=== PATIENT | male | born 1945 | race Caucasian/White ===

== ENCOUNTER 2016-06-30 15:19 | Emergency (ER) | payer MEDICARE, OTHER ==
[2016-06-30 15:35] VITALS: BMI 26.9
[2016-06-30] MEDS ORDERED: MECLIZINE 25 MG TAB PO ONE (16:05)
--- NOTE | 2016-06-30 16:05 | EDPRACDOC ---
- General Information Chief Complaint: Generalized Weakness Stated Complaint: ELEVATED BP PUGH TROUBLE SEEING Time Seen by Provider: 06/30/16 15:47 Information Source: Patient Mode Of Arrival: Car Home Medications: Home Medications Aspirin [Jose Aspirin] 325 mg PO DAILY 05/20/13 Tamsulosin HCl [Flomax] 2 tabs PO DAILY 07/12/13 Escitalopram Oxalate [Lexapro] 20 mg PO DAILY 01/31/15 Carbidopa/Levodopa [Carbidopa-Levo ER 25-100 Tab] 1 tab PO QID 02/20/15 Dicyclomine HCl [Bentyl] 10 mg PO Q6H PRN 09/24/15 Alprazolam [Xanax] 1 mg PO BID 06/30/16 Hydrocodone/Acetaminophen [Vicodin 5-300 mg Tablet] 1 tab PO BID PRN 06/30/16 Meclizine HCl [Antivert] 25 mg PO Q6H PRN #20 tablet 06/30/16 Omeprazole 40 mg PO DAILY 06/30/16 Allergies/Adverse Reactions: Allergies Allergy/AdvReac Type Severity Reaction Status Date / Time hydrochlorothiazide Allergy Intermediate See Verified 06/30/16 15:32 Comments "new depresion pill" Allergy See Uncoded 06/30/16 15:32 Comments "sleeping pill unknown" Allergy See Uncoded 06/30/16 15:32 Comments - History of Present Illness Onset: 2 weeks Exact Onset of Symptoms: Unknown HPI: PT SAID HE FELL 2 WEEKS AGO AND CAME HERE. HE SAID THAT HE HIT HIS HEAD. HE SAID HE HAD NO EVAL AND WAS ONLY GIVEN A SLEEPING PILL. PT'S LAST ER VISIT HERE WAS IN [facility] AND HE HAD A NL HEAD CT. PT SAID HE HAS HAD TROUBLE SEEING AND DIZZINESS SINCE THE FALL 2 WEEKS AGO. PT ALSO SAID THAT HIS DAUGHTER AND GRANDCHILDREN ARE LIVING WITH HIM AND CAUSING A LOT OF ANXIETY FOR HIS AND HIMSELF. Symptoms Started: Reports: Gradually Symptoms Description: Constant Weakness: Bilateral: Generalized Symptoms: Reports: Vertigo ED Past Medical History - Patient Medical History Neurological History: Reports: Cerebrovascular Accident (X 2), Parkinson's Cardiac History: Reports: Hypertension, Cardiac Catheterization Respiratory History: Reports: COPD (wears 2L NC at night), Chronic Bronchitis, Pneumonia GI/ History: Reports: Diverticulosis Musculoskeletal History: Reports: Arthritis (and chronic neck and back pain) Psychological History: Reports: Depression, Anxiety. Denies: Substance Use Disorder Systemic History: Denies: Cancer, Anemia Surgical History: Reports: Cholecystectomy, Cardiac Catheterization, Tonsillectomy/Adnoidectomy, Other (BILATERAL CATERACTS). Denies: Hernia Surgery - Family Medical History Reports: Hypertension (aunt), Diabetes (aunt), Cancer (mother-liver; father-lung ), Stroke (aunt). Denies: Cardiac Disorders - Social Medical History Smoking Status: Light tobacco smoker (less than 5/day) Social History: Denies: Substance Use Disorder ETOH: None Substance Abuse: None Lives In: Home EDM Review of Systems - Review of Systems ROS Negative Except as Marked: Yes All systems reviewed and were negative except as marked Neurological: Dizziness - Physical Exam Constitutional: Alert (Awake), No apparent distress Oriented to: Time, Person, Place Last recorded Vital Signs: Last Vital Signs Temp 98.4 F 06/30/16 15:32 Pulse 75 06/30/16 15:32 Resp 18 06/30/16 15:32 BP 129/74 06/30/16 15:32 Pulse Ox 97 06/30/16 15:32 Oxygen Pulse Oxygen Saturation 97 O2 Device Room Air Oxygen Flow Rate Fraction of Inspired Oxygen ( FIO2) - HEENT Head: Normal ( normocephalic) Eye Exam: Normal (PERRL, EOMI, Sclera white) Oropharynx: Normal (Pharynx:Moist without exudate,Gums-no swelling) ENT EAC: Normal TMJ: Normal Nose: No Symptoms Reported (septum midline) Neck: Normal (FROM, trachea at midline) - Respiratory/Cardiovascular Respiratory: Normal - CTA (BBS clear to auscultation without adventitious sounds ) Cardiovascular: Normal (RRR without murmur, gallop or rub) - GI Auscultation: Normal (NABS) Palpation: Normal (Soft,No rebound or guarding, non distended) Tenderness: Non tender Oreilly's Sign: Negative - Musculoskeletal Back: Normal (Non-Tender) Extremities: Normal (Normal tone, Pulses 2+ No cyanosis or edema, FROM) - Integumentary Skin: Normal, Warm, Dry Lymphatics: Normal (no adenopathy) - Neurologic Memory Impaired: Normal Motor Function: Normal (Normal tone, Pulses 2+ No cyanosis or edema, FROM) Cranial Nerve: Normal (CN II-X11 intact sensation, strength 5/5) Cerebellar: Tremor (CHRONIC) Mood Description: Normal Perception: Normal - Re-evaluation Re-evaluation 1 Re-evaluation Time: 17:39 (IMPROVED) - Results 06/30/16 16:10 06/30/16 16:10 - EKG EKG #1 EKG Time: 16:08 -: Yes EKG interpreted by me Rate: bpm: 63 [place]: Normal Rhythm: NSR Block: None Hypertrophy: None ST: Normal Comparison: 04/17/16 - Diagnostic Imaging Head Image interpreted by: Radiologist No acute abnormality. Atrophy and chronic microvascular ischemic change. Chest Image interpreted by: Radiologist No acute cardiopulmonary disease. Hyperinflation and bullous emphysema with bibasilar scarring. Decision Time to Discharge: 17:40 - Departure Yes I personally saw and evaluated the patient. Disposition: Home Condition: Fair Final Diagnosis: Vertigo Instructions: Vertigo (ED), Weakness (General) Education/Counseling Given To: Patient, Family Member Education/Counseling Given Regarding: Diagnosis, Treatment, Follow Up Referrals: Jigna Metcalf MD [Primary Care Provider] - One Week Prescriptions: Meclizine HCl [Antivert] 25 mg PO Q6H PRN #20 tablet PRN Reason: Dizziness Additional Instructions: F/U WITH DR. KITCHEN USE [facility] [place]
[2016-06-30 16:27] LABS: MPV 9.1 fL (7.4-10.4)
--- NOTE | 2016-06-30 16:34 | DIRPT ---
CLINICAL DATA: Dizziness, blurred vision and unsteady gait for 2 weeks. History of prior stroke. Initial encounter. EXAM: CT HEAD WITHOUT CONTRAST TECHNIQUE: Contiguous axial images were obtained from the base of the skull through the vertex without intravenous contrast. COMPARISON: Head CT scan 04/17/2016. FINDINGS: The brain is atrophic with chronic microvascular ischemic change. Punctate lacunar infarctions in the thalami are again seen. No evidence of acute intracranial abnormality including hemorrhage, infarct, mass lesion, mass effect, midline shift or abnormal extra-axial fluid collection is seen. No hydrocephalus or pneumocephalus. The calvarium is intact. IMPRESSION: No acute abnormality. Atrophy and chronic microvascular ischemic change. Electronically Signed By: Wilton Sams M.D. On: 06/30/2016 16:31
[2016-06-30 16:38] LABS: BLOOD UREA NITROGEN 7 MG/DL (9-20); CALC CORRECTED 8.4 MG/DL (8.4-10.2); CALCIUM 8.3 MG/DL (8.4-10.2); CALCULATED OSMOLALITY 267 MOs/Kg (270-290); CHLORIDE 103 mEq/L (98-107); GLUCOSE 115 MG/DL (70-99); PARTIAL THROMB. TIME 26.4 SEC (22-35); PT-INR 1.1; SODIUM LEVEL 139 mEq/L (137-146); TOTAL PROTEIN 7.2 G/DL (6.3-8.2)
--- NOTE | 2016-06-30 16:45 | DIRPT ---
CLINICAL DATA: Dizziness. Fall 2 weeks ago. EXAM: PORTABLE CHEST 1 VIEW COMPARISON: 04/17/2016 FINDINGS: Midline trachea. Normal heart size. No pleural effusion or pneumothorax. Hyperinflation with bullous type emphysema at the lung apices. Bibasilar scarring. No lobar consolidation. IMPRESSION: No acute cardiopulmonary disease. Hyperinflation and bullous emphysema with bibasilar scarring. Electronically Signed By: Dutch Naranjo M.D. On: 06/30/2016 16:42
[2016-06-30 17:27] LABS: LEUKOCYTES/URINE NEG (NEGATIVE); NITRITE/URINE NEG (NEGATIVE); URINE OCCULT BLOOD NEG (NEG/TRACE); WBC/URINE 0-2 (0-2)
[2016-06-30 17:34] LABS: SEG NEUTROPHIL 37 % (45-76)
[2016-06-30 18:06] VITALS: BP 175/79; PULSE 79; TEMP 98.5
== END 2016-06-30 18:04 | disposition home or self-care (01) ==
LOC: ED 15:19
DX: R42 Dizziness and giddiness (principal)
CPT/HCPCS: 36415; 70450; 71010; 80053; 81001; 84484; 85007; 85027; 85610; 85730; 93005; 99284; A9270; J3490